=== PATIENT | male | born 1975 | race African-American/Black ===

== ENCOUNTER 2017-02-06 23:10 | Emergency (ER) | payer MEDICAID ==
[~2017-02-06] VITALS: Ht 177.8 cm; Wt 61.7 kg
[2017-02-07] MEDS: IBUPROFEN 600MG TABLET PO NR ×3 (04:15→05:03)
[2017-02-07 05:03] VITALS: BP 152/104
== END 2017-02-07 05:31 | disposition home or self-care (01) ==
LOC: ER 23:15
DX: S42.032A Displaced fracture of lateral end of left clavicle, initial encounter for closed fracture (principal); F17.200 Nicotine dependence, unspecified, uncomplicated; F12.10 Cannabis abuse, uncomplicated; Y04.0XXA Assault by unarmed brawl or fight, initial encounter; Y93.89 Activity, other specified; Y92.89 Other specified places as the place of occurrence of the external cause; Y99.8 Other external cause status
CPT/HCPCS: 71010; 73030; 99284

== ENCOUNTER 2017-04-23 18:09 | Emergency (ER) | payer MEDICAID, OTHER ==
[~2017-04-23] VITALS: Ht 182.9 cm; Wt 66.0 kg
[2017-04-23] MEDS ORDERED: MAGNESIUM/ALUMINUM HYDROXIDE/SIMETHICONE 30ML UDC PO STA (23:38)
[2017-04-23] MEDS ORDERED: ONDANSETRON HCL 4MG/2ML VIAL IV STA (23:38)
[2017-04-23] MEDS ORDERED: SODIUM CHLORIDE 0.9% 1,000 ML IV ONE (23:38)
[2017-04-23] MEDS ORDERED: DICYCLOMINE 10 MG/5 ML ORAL SYR PO STA (23:38)
[2017-04-23] MEDS ORDERED: KETOROLAC 30MG/ML VIAL IV STA (23:38)
[2017-04-23] MEDS ORDERED: VISCOUS LIDOCAINE 2% 15 ML UDC PO STA (23:38)
[2017-04-23 23:55] LABS: BASOPHILS % 0.2 % (0.0-2.0); EOSINOPHILS % 1.2 % (0.0-5.0); HEMATOCRIT. 41.4 % (42.0-52.0); HEMOGLOBIN. 14.1 g/dL (14.0-18.0); LYMPHOCYTES % 22.6 % (20.0-50.0); MEAN CORPUSCULAR HEMOGLOBIN 30.9 pg (28.0-32.0); MEAN CORPUSCULAR VOLUME 90.5 fL (80.0-94.0); MONOCYTES % 6.4 % (2.0-8.0); NEUTROPHILS % 69.6 % (40.0-76.0); PLATELET 169 x1000/uL (130-400); RED BLOOD CELL COUNT 4.58 mill/uL (4.7-6.1); RED CELL DISTRIBUTION WIDTH 14.5 % (11.6-14.6)
[2017-04-24] LABS: CHLORIDE 102 mEq/L (98-107)
[2017-04-24 00:07] LABS: PROTHROMBIN TIME 10.1 sec
[2017-04-24 00:08] LABS: CARBON DIOXIDE 29 mEq/L (21-32)
[2017-04-24 01:20] VITALS: BP 125/86
== END 2017-04-24 01:40 | disposition home or self-care (01) ==
LOC: ER 18:11
DX: R10.30 Lower abdominal pain, unspecified (principal); R11.2 Nausea with vomiting, unspecified
CPT/HCPCS: 36415; 80053; 83690; 85025; 85610; 96361; 96374; 96375; 99284; J1885; J7030; Z7610

== ENCOUNTER 2019-04-12 14:47 | Emergency (ER) | payer OTHER | END 2019-04-12 15:58 | disposition left against medical advice (07) | LOC: EDBD → ER 14:47 | DX: Z53.21 Procedure and treatment not carried out due to patient leaving prior to being seen by health care provider (principal) ==

== ENCOUNTER 2019-04-12 16:27 | Emergency (ER) | payer SELFPAY ==
[~2019-04-12] VITALS: Ht 175.3 cm; Wt 66.0 kg
[2019-04-12 16:46] VITALS: BP 130/79
== END 2019-04-12 22:30 | disposition left against medical advice (07) ==
LOC: ER 16:27
DX: Z53.21 Procedure and treatment not carried out due to patient leaving prior to being seen by health care provider (principal)